=== PATIENT | male | born 1955 | race African-American/Black ===

== ENCOUNTER 2024-05-04 18:29 | Emergency (ER) | payer MEDICARE, OTHER ==
[~2024-05-04] VITALS: Ht 188 cm; Wt 72.7 kg
[2024-05-04 19:02] VITALS: TEMP 98.2
[2024-05-04] MEDS: HydrOXYzine HCL 25 MG TABLET PO ONE (19:40)
[2024-05-04] MEDS: PERMETHRIN 5% 60 GM CREAM TP ONE (19:44)
[2024-05-04 19:49] LABS: BASOPHILS % (AUTO) 0.6 % (0.0-2.0); EOSINOPHILS % (AUTO) 9.6 % (1.0-6.0); HEMATOCRIT 29.1 % (41-53); HEMOGLOBIN 9.9 g/dL (13.5-17.5); LYMPHOCYTES # (AUTO) 0.7 K/uL (1.0-4.8); LYMPHOCYTES % (AUTO) 21.6 % (22.0-44.0); MEAN CORPUSCULAR HEMOGLOBIN 36.1 pg (26.0-34.0); MEAN CORPUSCULAR HGB CONC 34.2 G/dL (31.0-37.0); MEAN CORPUSCULAR VOLUME 106 fL (80-100); MONOCYTES # (AUTO) 0.7 K/uL (0.1-1.0); MONOCYTES % (AUTO) 19.7 % (2.0-9.0); NEUTROPHILS # (AUTO) 1.6 K/uL (1.8-7.7); NEUTROPHILS % (AUTO) 48.5 % (40.0-70.0); PLATELET COUNT (AUTO) 208 K/uL (150-450); RED BLOOD CELL COUNT(AUTO) 2.75 MIL/uL (4.50-5.90); RED CELL DISTRIBUTION WIDTH 15.3 % (11.5-14.5); WHITE BLOOD COUNT (AUTO) 3.4 K/uL (4.5-11.0)
[2024-05-04 19:56] LABS: ANION GAP 4 mmol/L (8-16); CALCIUM, TOTAL 8.9 mg/dL (8.8-10.5); CARBON DIOXIDE 33 mmol/L (22-29); CHLORIDE 102 mmol/L (98-107); CREATININE 0.94 mg/dL (0.60-1.30); GLOMERULAR FILTR. RATE CALC > 60 mL/min (>60); GLUCOSE,RANDOM 97 mg/dL (70-110); POTASSIUM 3.1 mmol/L (3.5-5.1); SODIUM SERUM 139 mmol/L (136-145); UREA NITROGEN, BLOOD 12 mg/dL (7-18)
[2024-05-04 20:00] LABS: ALBUMIN 3.1 g/dL (3.4-5.0); BILIRUBIN,DIRECT 0.2 mg/dL (0.00-0.20); BILIRUBIN,TOTAL 0.4 mg/dL (0.1-1.0); TOTAL PROTEIN, SERUM 7.2 g/dL (6.4-8.2)
[2024-05-04 20:02] LABS: RBC MORPHOLOGY COMMENT ABNORMAL RBC MORPH
[2024-05-04 20:07] LABS: TROPONIN I-HIGH SENSITIVITY 17 ng/L (<76)
[2024-05-04] MEDS ORDERED: HYDR30CR3 TP (20:55)
[2024-05-04 21:04] VITALS: BP 131/69; PULSE 76; RESP 18; O2SAT 99
== END 2024-05-04 21:37 | disposition home or self-care (01) ==
LOC: EMS 18:33
DX: B86 Scabies (principal); R60.0 Localized edema
CPT/HCPCS: 71045; 80048; 80076; 84484; 85025; 93005; 99285; 36415-L1; 36415-TC

== ENCOUNTER 2024-05-20 19:22 | Inpatient (IN) | payer MEDICARE, OTHER ==
[~2024-05-20] VITALS: Ht 188 cm; Wt 81.0 kg
[~2024-05-20 19:22] MED LIST: HYDR30CR3 TP
[2024-05-20 21:38] LABS: BASOPHILS % (AUTO) 0.4 % (0.0-2.0); EOSINOPHILS % (AUTO) 0.2 % (1.0-6.0); HEMATOCRIT 32.6 % (41-53); HEMOGLOBIN 10.8 g/dL (13.5-17.5); LYMPHOCYTES # (AUTO) 0.5 K/uL (1.0-4.8); LYMPHOCYTES % (AUTO) 4.2 % (22.0-44.0); MEAN CORPUSCULAR HEMOGLOBIN 35.3 pg (26.0-34.0); MEAN CORPUSCULAR HGB CONC 33.2 G/dL (31.0-37.0); MEAN CORPUSCULAR VOLUME 106 fL (80-100); MONOCYTES # (AUTO) 0.9 K/uL (0.1-1.0); NEUTROPHILS # (AUTO) 10.3 K/uL (1.8-7.7); PLATELET COUNT (AUTO) 371 K/uL (150-450); RED BLOOD CELL COUNT(AUTO) 3.06 MIL/uL (4.50-5.90); RED CELL DISTRIBUTION WIDTH 15.1 % (11.5-14.5); WHITE BLOOD COUNT (AUTO) 11.8 K/uL (4.5-11.0)
[2024-05-20 21:40] LABS: COVID AG,FIA SOURCE NASAL SWAB
[2024-05-20 21:41] LABS: APPEARANCE,URINE CLEAR (CLEAR); BILIRUBIN,URINE NEGATIVE (NEGATIVE); COLOR,URINE LIGHT YELLOW (YELLOW); GLUCOSE, URINE (UA) NEGATIVE (NEGATIVE); KETONES,URINE NEGATIVE (NEGATIVE); LEUKOCYTE ESTERASE ,URINE NEGATIVE (NEGATIVE); NITRATE,URINE NEGATIVE (NEGATIVE); OCCULT BLOOD,URINE NEGATIVE (NEGATIVE); PROTEIN,URINE NEGATIVE (NEGATIVE); SPECIFIC GRAVITIY, URINE 1.009 (1.003-1.030); UROBILINOGEN,URINE <=1.0 mg/dL (<=1.0)
[2024-05-20 21:43] LABS: ANION GAP 10 mmol/L (8-16); CALCIUM, TOTAL 8.7 mg/dL (8.8-10.5); CARBON DIOXIDE 27 mmol/L (22-29); CHLORIDE 100 mmol/L (98-107); CREATININE 1.06 mg/dL (0.60-1.30); GLOMERULAR FILTR. RATE CALC > 60 mL/min (>60); GLUCOSE,RANDOM 117 mg/dL (70-110); POTASSIUM 3.4 mmol/L (3.5-5.1); SODIUM SERUM 137 mmol/L (136-145); UREA NITROGEN, BLOOD 10 mg/dL (7-18)
[2024-05-20 21:45] LABS: NEUTROPHILS % (AUTO) 87.2 % (40.0-70.0)
[2024-05-20 21:49] LABS: ALCOHOL, URINE DRUG SCREEN NEGATIVE (NEGATIVE); AMPHET/METH SCREEN,URINE NEGATIVE (NEGATIVE); BARBITURATE SCREEN, URINE NEGATIVE (NEGATIVE); BENZODIAZEPINES SCREEN,URINE NEGATIVE (NEGATIVE); CANNABINOID SCREEN,URINE NEGATIVE (NEGATIVE); COCAINE SCREEN,URINE POSITIVE (NEGATIVE); METHADONE SCREEN, URINE NEGATIVE (NEGATIVE); OPIATE SCREEN,URINE NEGATIVE (NEGATIVE); PHENCYCLIDINE SCREEN,URINE NEGATIVE (NEGATIVE)
[2024-05-20 21:49] LABS: BILIRUBIN,DIRECT 0.2 mg/dL (0.00-0.20); BILIRUBIN,TOTAL 0.6 mg/dL (0.1-1.0); TOTAL PROTEIN, SERUM 7.1 g/dL (6.4-8.2)
[2024-05-20 21:50] LABS: LACTIC ACID 1.3 mmol/L (0.4-2.0)
[2024-05-20 21:51] LABS: TROPONIN I-HIGH SENSITIVITY 32 ng/L (<76)
[2024-05-20] MEDS ORDERED: ONDANSETRON HCL 4 MG/2 ML VIAL IVP PRN (22:00)
[2024-05-20] MEDS ORDERED: ALBUTEROL SULFATE 2.5 MG/0.5 ML NEB SOLUTION NEB PRN (22:00)
[2024-05-20] MEDS ORDERED: IPRATROPIUM BROMIDE 0.5 MG/2.5 ML NEB SOLUTION NEB PRN (22:00)
[2024-05-20 22:01] LABS: INFLUENZA TYPE A NEGATIVE FOR TYPE A (NEGATIVE); INFLUENZA TYPE B NEGATIVE FOR TYPE B (NEGATIVE); SARS-COV2 (COVID) ANTIGEN,FIA Negative (Negative)
[2024-05-20] MEDS: CefTRIAXone 1 GM/DEXTROSE 50 ML IV ONE (22:26)
[2024-05-20] MEDS: SODIUM CHLORIDE 0.9% 1,000 ML IV ONE (22:27)
[2024-05-20] MEDS: AZITHROMYCIN 500 MG/NS 250 ML IV ONE (22:31)
[2024-05-20] MEDS: HEPARIN SODIUM,PORCINE 5,000 UNITS/ML VIAL SQ SCH (23:29)
[2024-05-21] VITALS (7 sets, daily range): BP systolic 130–165; BP diastolic 63–86; PULSE 62–89; RESP 16–19; TEMP 97.3–99.9; O2SAT 98–100
[2024-05-21] MEDS: HydrALAZINE HCL 20 MG/ML VIAL IVP ONE (01:58)
[2024-05-21] MEDS: POTASSIUM CHLORIDE 20 MEQ ER TABLET PO ONE (05:27)
[2024-05-21] MEDS: ACETAMINOPHEN 325 MG TABLET PO PRN (05:27)
[2024-05-21 06:47] LABS: BASOPHILS % (AUTO) 0.6 % (0.0-2.0); EOSINOPHILS % (AUTO) 1.2 % (1.0-6.0); HEMATOCRIT 31.9 % (41-53); HEMOGLOBIN 10.9 g/dL (13.5-17.5); LYMPHOCYTES # (AUTO) 0.7 K/uL (1.0-4.8); LYMPHOCYTES % (AUTO) 6.5 % (22.0-44.0); MEAN CORPUSCULAR HEMOGLOBIN 36.9 pg (26.0-34.0); MEAN CORPUSCULAR HGB CONC 34.3 G/dL (31.0-37.0); MEAN CORPUSCULAR VOLUME 108 fL (80-100); MONOCYTES # (AUTO) 1.1 K/uL (0.1-1.0); MONOCYTES % (AUTO) 10.4 % (2.0-9.0); NEUTROPHILS # (AUTO) 8.5 K/uL (1.8-7.7); NEUTROPHILS % (AUTO) 81.3 % (40.0-70.0); PLATELET COUNT (AUTO) 361 K/uL (150-450); RED BLOOD CELL COUNT(AUTO) 2.96 MIL/uL (4.50-5.90); RED CELL DISTRIBUTION WIDTH 15.5 % (11.5-14.5); WHITE BLOOD COUNT (AUTO) 10.4 K/uL (4.5-11.0)
[2024-05-21 06:55] LABS: ANION GAP 6 mmol/L (8-16); CALCIUM, TOTAL 8.6 mg/dL (8.8-10.5); CARBON DIOXIDE 29 mmol/L (22-29); CHLORIDE 106 mmol/L (98-107); CREATININE 1.06 mg/dL (0.60-1.30); GLOMERULAR FILTR. RATE CALC > 60 mL/min (>60); GLUCOSE,RANDOM 129 mg/dL (70-110); POTASSIUM 3.2 mmol/L (3.5-5.1); SODIUM SERUM 141 mmol/L (136-145); UREA NITROGEN, BLOOD 10 mg/dL (7-18)
[2024-05-21 07:24] LABS: RBC MORPHOLOGY COMMENT ABNORMAL RBC MORPH
[2024-05-21 12:43] LABS: POTASSIUM 3.9 mmol/L (3.5-5.1)
[2024-05-21 13:54] LABS: ANION GAP 7 mmol/L (8-16); CALCIUM, TOTAL 8.7 mg/dL (8.8-10.5); CARBON DIOXIDE 28 mmol/L (22-29); CHLORIDE 105 mmol/L (98-107); CREATININE 0.84 mg/dL (0.60-1.30); GLOMERULAR FILTR. RATE CALC > 60 mL/min (>60); GLUCOSE,RANDOM 99 mg/dL (70-110); PHOSPHORUS 3.1 mg/dL (2.5-4.9); SODIUM SERUM 140 mmol/L (136-145); UREA NITROGEN, BLOOD 12 mg/dL (7-18)
[2024-05-21] MEDS: PERMETHRIN 5% 60 GM CREAM TP ONE (21:21)
[2024-05-21] MEDS: CefTRIAXone 1 GM/DEXTROSE 50 ML IV SCH (21:21)
[2024-05-21] MEDS: AZITHROMYCIN 500 MG/NS 250 ML IV SCH (22:41)
[2024-05-22 00:14] VITALS: BP 155/80; PULSE 78; RESP 16; TEMP 98; O2SAT 100
[2024-05-22 03:50] VITALS: BP 145/72; PULSE 69; RESP 17; TEMP 98.2; O2SAT 100
[2024-05-22 06:57] LABS: ANION GAP 5 mmol/L (8-16); CALCIUM, TOTAL 8.4 mg/dL (8.8-10.5); CARBON DIOXIDE 30 mmol/L (22-29); CHLORIDE 105 mmol/L (98-107); CREATININE 0.78 mg/dL (0.60-1.30); GLOMERULAR FILTR. RATE CALC > 60 mL/min (>60); GLUCOSE,RANDOM 91 mg/dL (70-110); POTASSIUM 3.7 mmol/L (3.5-5.1); SODIUM SERUM 140 mmol/L (136-145); UREA NITROGEN, BLOOD 11 mg/dL (7-18)
[2024-05-22 07:09] LABS: BASOPHILS % (AUTO) 3.2 % (0.0-2.0); HEMATOCRIT 30.3 % (41-53); HEMOGLOBIN 10.2 g/dL (13.5-17.5); LYMPHOCYTES % (AUTO) 18.4 % (22.0-44.0); MEAN CORPUSCULAR HGB CONC 33.8 G/dL (31.0-37.0); MEAN CORPUSCULAR VOLUME 107 fL (80-100); MONOCYTES % (AUTO) 17.3 % (2.0-9.0); NEUTROPHILS # (AUTO) 3.1 K/uL (1.8-7.7); NEUTROPHILS % (AUTO) 54.1 % (40.0-70.0); PLATELET COUNT (AUTO) 334 K/uL (150-450); RED BLOOD CELL COUNT(AUTO) 2.84 MIL/uL (4.50-5.90); RED CELL DISTRIBUTION WIDTH 14.9 % (11.5-14.5); WHITE BLOOD COUNT (AUTO) 5.6 K/uL (4.5-11.0)
[2024-05-22 08:00] VITALS: BP 145/85; PULSE 76; RESP 18; TEMP 98.4; O2SAT 100
[2024-05-22 12:00] VITALS: BP 143/69; PULSE 72; RESP 18; TEMP 98.3; O2SAT 100
[2024-05-22 16:00] VITALS: BP 140/71; PULSE 75; RESP 18; TEMP 98.1; O2SAT 100
[2024-05-22] MEDS ORDERED: AMOX-457 PO (16:00)
[2024-05-22 20:28] VITALS: BP 134/87; PULSE 89; RESP 18; TEMP 98.5; O2SAT 100
[2024-05-22] MEDS ORDERED: SODIUM CHLORIDE 0.9% 250 ML IV ONE (21:07)
[2024-05-23 06:33] VITALS: BP 165/85; PULSE 75; RESP 18; TEMP 98.4; O2SAT 99
[2024-05-23 07:55] VITALS: BP 179/104; PULSE 71; RESP 18; TEMP 97.7; O2SAT 100
[2024-05-23] MEDS: CloNIDine HCL 0.1 MG TABLET PO ONE (08:48)
[2024-05-23 12:01] LABS: GLUCOMETER DEV NAME(LOC) 6N.1B; GLUCOSE,POINT OF CARE 120 MG/DL (70-110)
[2024-05-23 12:30] VITALS: BP 148/74; PULSE 70; RESP 18; TEMP 97.6; O2SAT 100
[2024-05-23 15:49] VITALS: BP 139/68; PULSE 71; RESP 18; TEMP 98.1; O2SAT 98
[2024-05-23 16:38] LABS: TROPONIN I-HIGH SENSITIVITY 11 ng/L (<76)
== END 2024-05-23 17:10 | disposition home or self-care (01) | DRG 871 ==
LOC: EMS 19:22 → EDH 21:57 → 5N 05-21 02:27 → 4E 05-22 18:31
PROVIDERS: ADMIT Internal Medicine; ATTEND Internal Medicine
DX: A41.9 Sepsis, unspecified organism (principal); J18.9 Pneumonia, unspecified organism; Z59.00 Homelessness unspecified; Z20.822 Contact with and (suspected) exposure to COVID-19; E87.6 Hypokalemia; D64.9 Anemia, unspecified
CPT/HCPCS: 70450; 71045; 80048; 80076; 80307; 81003; 82140; 82962; 83605; 83735; 84100; 84484; 85025; 87040; 87804; 93005; 96365; 96368; 96372; 99285; G0378; J0360; J0456; J0696; J1644; J7030; J7050; 36415-L1; 36415-TC; J7613

== ENCOUNTER 2024-08-12 05:46 | Inpatient (IN) | payer MEDICARE, OTHER ==
[~2024-08-12] VITALS: Ht 188 cm; Wt 71.3 kg
[~2024-08-12 05:46] MED LIST changes: +AMOX-457 PO
[2024-08-12] MEDS: hydroCHLOROthiazide 25 MG TABLET PO ONE (07:31)
[2024-08-12] MEDS: lisinopriL 10 MG TABLET PO ONE ×2 (07:31→10:16)
[2024-08-12 07:36] LABS: BASOPHILS % (AUTO) 0.8 % (0.0-2.0); HEMATOCRIT 39.3 % (41-53); HEMOGLOBIN 13.5 g/dL (13.5-17.5); LYMPHOCYTES # (AUTO) 0.8 K/uL (1.0-4.8); LYMPHOCYTES % (AUTO) 15.7 % (22.0-44.0); MEAN CORPUSCULAR HEMOGLOBIN 33.5 pg (26.0-34.0); MEAN CORPUSCULAR HGB CONC 34.3 G/dL (31.0-37.0); MEAN CORPUSCULAR VOLUME 98 fL (80-100); MONOCYTES # (AUTO) 0.6 K/uL (0.1-1.0); MONOCYTES % (AUTO) 11.8 % (2.0-9.0); NEUTROPHILS # (AUTO) 3.2 K/uL (1.8-7.7); NEUTROPHILS % (AUTO) 65.7 % (40.0-70.0); PLATELET COUNT (AUTO) 206 K/uL (150-450); RED BLOOD CELL COUNT(AUTO) 4.01 MIL/uL (4.50-5.90); RED CELL DISTRIBUTION WIDTH 13.3 % (11.5-14.5); WHITE BLOOD COUNT (AUTO) 4.9 K/uL (4.5-11.0)
[2024-08-12 07:44] LABS: ANION GAP 5 mmol/L (8-16); CALCIUM, TOTAL 9.1 mg/dL (8.8-10.5); CARBON DIOXIDE 31 mmol/L (22-29); CHLORIDE 103 mmol/L (98-107); CREATININE 1.05 mg/dL (0.60-1.30); GLOMERULAR FILTR. RATE CALC > 60 mL/min (>60); GLUCOSE,RANDOM 95 mg/dL (70-110); POTASSIUM 3.2 mmol/L (3.5-5.1); SODIUM SERUM 139 mmol/L (136-145); UREA NITROGEN, BLOOD 14 mg/dL (7-18)
[2024-08-12] MEDS: PERMETHRIN 5% 60 GM CREAM TP ONE (08:17)
[2024-08-12 08:52] LABS: TROPONIN I-HIGH SENSITIVITY 22 ng/L (<76)
[2024-08-12 08:58] LABS: APPEARANCE,URINE CLEAR (CLEAR); BILIRUBIN,URINE NEGATIVE (NEGATIVE); COLOR,URINE LIGHT YELLOW (YELLOW); GLUCOSE, URINE (UA) NEGATIVE (NEGATIVE); KETONES,URINE TRACE mg/dL (NEGATIVE); LEUKOCYTE ESTERASE ,URINE NEGATIVE (NEGATIVE); NITRATE,URINE NEGATIVE (NEGATIVE); OCCULT BLOOD,URINE NEGATIVE (NEGATIVE); PROTEIN,URINE TRACE mg/dL (NEGATIVE); SPECIFIC GRAVITIY, URINE 1.014 (1.003-1.030); UROBILINOGEN,URINE <=1.0 mg/dL (<=1.0)
[2024-08-12 09:05] LABS: ALCOHOL, URINE DRUG SCREEN NEGATIVE (NEGATIVE); AMPHET/METH SCREEN,URINE NEGATIVE (NEGATIVE); BARBITURATE SCREEN, URINE NEGATIVE (NEGATIVE); BENZODIAZEPINES SCREEN,URINE NEGATIVE (NEGATIVE); CANNABINOID SCREEN,URINE NEGATIVE (NEGATIVE); COCAINE SCREEN,URINE POSITIVE (NEGATIVE); METHADONE SCREEN, URINE NEGATIVE (NEGATIVE); OPIATE SCREEN,URINE NEGATIVE (NEGATIVE); PHENCYCLIDINE SCREEN,URINE POSITIVE (NEGATIVE)
[2024-08-12] MEDS: POTASSIUM CHLORIDE 20 MEQ ER TABLET PO ONE (12:35)
[2024-08-12] MEDS ORDERED: EZET10TA57 PO (13:21)
[2024-08-12] MEDS ORDERED: LISI-658 PO (13:21)
[2024-08-12 14:28] VITALS: BP 158/78; PULSE 82; RESP 18; TEMP 98; O2SAT 98
[2024-08-12] MEDS ORDERED: BISACODYL 10 MG RECTAL RECTAL SUPPOSITORY PR PRN (15:30)
[2024-08-12] MEDS ORDERED: MAGNESIUM HYDROXIDE SUSPENSION 30 ML UDCUP PO PRN (15:30)
[2024-08-12] MEDS ORDERED: ACETAMINOPHEN 325 MG TABLET PO PRN (15:30)
[2024-08-12] MEDS ORDERED: ZOLPIDEM TARTRATE 5 MG TABLET PO PRN (15:30)
[2024-08-12] MEDS ORDERED: HYDROCODONE/ACETAMINOPHEN 5-325 MG TABLET PO PRN (15:30)
[2024-08-12] MEDS ORDERED: MORPHINE SULFATE 2 MG/ML SYRINGE IVP PRN (15:30)
[2024-08-12] MEDS ORDERED: ONDANSETRON HCL 4 MG/2 ML VIAL IVP PRN (15:30)
[2024-08-12 15:34] VITALS: BP 142/70; PULSE 80; RESP 18; TEMP 98; O2SAT 97
[2024-08-12] MEDS: HEPARIN SODIUM,PORCINE 5,000 UNITS/ML VIAL SQ SCH (16:45)
[2024-08-12 19:20] VITALS: BP 153/83; PULSE 75; RESP 18; TEMP 97.9; O2SAT 97
[2024-08-12] MEDS ORDERED: POTASSIUM CHL 10 MEQ/WATER 50 ML IV PRN (21:00)
[2024-08-12] MEDS: DOCUSATE SODIUM 100 MG CAPSULE PO SCH (21:00)
[2024-08-12] MEDS: AmLODIPine BESYLATE 10 MG TABLET PO ONE (21:40)
[2024-08-12] MEDS: POTASSIUM CHLORIDE 20 MEQ ER TABLET PO PRN (21:54)
[2024-08-12 23:11] VITALS: BP 157/84; PULSE 72; RESP 18; TEMP 98.1; O2SAT 100
[2024-08-13 04:16] VITALS: BP 148/73; PULSE 76; RESP 19; TEMP 98.2; O2SAT 100
[2024-08-13 07:08] LABS: BASOPHILS % (AUTO) 0.9 % (0.0-2.0); EOSINOPHILS % (AUTO) 13.7 % (1.0-6.0); HEMATOCRIT 37.9 % (41-53); LYMPHOCYTES % (AUTO) 30.1 % (22.0-44.0); MEAN CORPUSCULAR HEMOGLOBIN 33.9 pg (26.0-34.0); MEAN CORPUSCULAR HGB CONC 34.4 G/dL (31.0-37.0); MEAN CORPUSCULAR VOLUME 98 fL (80-100); MONOCYTES # (AUTO) 0.3 K/uL (0.1-1.0); MONOCYTES % (AUTO) 9.3 % (2.0-9.0); NEUTROPHILS # (AUTO) 1.5 K/uL (1.8-7.7); PLATELET COUNT (AUTO) 229 K/uL (150-450); RED BLOOD CELL COUNT(AUTO) 3.85 MIL/uL (4.50-5.90); RED CELL DISTRIBUTION WIDTH 12.7 % (11.5-14.5); WHITE BLOOD COUNT (AUTO) 3.3 K/uL (4.5-11.0)
[2024-08-13 07:17] LABS: ANION GAP 3 mmol/L (8-16); CALCIUM, TOTAL 8.7 mg/dL (8.8-10.5); CARBON DIOXIDE 31 mmol/L (22-29); CHLORIDE 108 mmol/L (98-107); CREATININE 1.12 mg/dL (0.60-1.30); GLOMERULAR FILTR. RATE CALC > 60 mL/min (>60); GLUCOSE,RANDOM 129 mg/dL (70-110); SODIUM SERUM 142 mmol/L (136-145); UREA NITROGEN, BLOOD 17 mg/dL (7-18)
[2024-08-13 08:25] VITALS: BP 143/84; PULSE 64; RESP 18; TEMP 97.6; O2SAT 97
[2024-08-13] MEDS: PANTOPRAZOLE SODIUM 40 MG DR TABLET PO SCH (08:55)
[2024-08-13] MEDS: hydroCHLOROthiazide 25 MG TABLET PO SCH (08:56)
[2024-08-13] MEDS: EZETIMIBE 10 MG TABLET PO SCH (08:56)
[2024-08-13] MEDS: lisinopriL 20 MG TABLET PO SCH (08:56)
[2024-08-13 12:08] VITALS: BP 143/80; PULSE 66; RESP 18; TEMP 98.4; O2SAT 97
[2024-08-13] MEDS: AmLODIPine BESYLATE 5 MG TABLET PO SCH (12:38)
[2024-08-13 16:00] VITALS: BP 147/79; PULSE 71; RESP 18; TEMP 98.1; O2SAT 96
[2024-08-13 19:49] VITALS: BP 152/82; PULSE 72; RESP 19; TEMP 98.2; O2SAT 100
[2024-08-14 03:01] VITALS: BP 142/87; PULSE 69; RESP 17; TEMP 98.3; O2SAT 97
[2024-08-14 10:11] LABS: BASOPHILS % (AUTO) 0.8 % (0.0-2.0); EOSINOPHILS % (AUTO) 12.5 % (1.0-6.0); HEMATOCRIT 40.4 % (41-53); HEMOGLOBIN 13.6 g/dL (13.5-17.5); LYMPHOCYTES # (AUTO) 0.9 K/uL (1.0-4.8); LYMPHOCYTES % (AUTO) 32.7 % (22.0-44.0); MEAN CORPUSCULAR HEMOGLOBIN 33.2 pg (26.0-34.0); MEAN CORPUSCULAR HGB CONC 33.7 G/dL (31.0-37.0); MEAN CORPUSCULAR VOLUME 99 fL (80-100); MONOCYTES # (AUTO) 0.4 K/uL (0.1-1.0); MONOCYTES % (AUTO) 13.1 % (2.0-9.0); NEUTROPHILS # (AUTO) 1.2 K/uL (1.8-7.7); NEUTROPHILS % (AUTO) 40.9 % (40.0-70.0); PLATELET COUNT (AUTO) 226 K/uL (150-450); RED CELL DISTRIBUTION WIDTH 13.1 % (11.5-14.5); WHITE BLOOD COUNT (AUTO) 2.9 K/uL (4.5-11.0)
[2024-08-14 10:20] LABS: ANION GAP 2 mmol/L (8-16); CARBON DIOXIDE 35 mmol/L (22-29); CHLORIDE 102 mmol/L (98-107); CREATININE 0.97 mg/dL (0.60-1.30); GLOMERULAR FILTR. RATE CALC > 60 mL/min (>60); GLUCOSE,RANDOM 105 mg/dL (70-110); POTASSIUM 3.4 mmol/L (3.5-5.1); SODIUM SERUM 139 mmol/L (136-145); UREA NITROGEN, BLOOD 13 mg/dL (7-18)
[2024-08-14] MEDS ORDERED: AMLO-257 PO (10:56)
[2024-08-14] MEDS ORDERED: EZET10TA57 PO (10:56)
[2024-08-14] MEDS ORDERED: LISI-658 PO (10:56)
[2024-08-14 13:26] VITALS: BP 154/91; PULSE 66; RESP 18; TEMP 98.2; O2SAT 100
[2024-08-14 16:40] VITALS: BP 108/68; PULSE 76; RESP 17; TEMP 97.9; O2SAT 100
[2024-08-14 20:00] VITALS: BP 158/76; PULSE 72; RESP 16; TEMP 97.7; O2SAT 99
[2024-08-15 03:49] VITALS: BP 142/69; PULSE 74; RESP 18; TEMP 98.2; O2SAT 99
[2024-08-15 07:40] LABS: EOSINOPHILS % (AUTO) 9.3 % (1.0-6.0); HEMATOCRIT 38.7 % (41-53); HEMOGLOBIN 13.3 g/dL (13.5-17.5); LYMPHOCYTES % (AUTO) 26.8 % (22.0-44.0); MEAN CORPUSCULAR HEMOGLOBIN 33.9 pg (26.0-34.0); MEAN CORPUSCULAR HGB CONC 34.5 G/dL (31.0-37.0); MEAN CORPUSCULAR VOLUME 98 fL (80-100); MONOCYTES # (AUTO) 0.5 K/uL (0.1-1.0); MONOCYTES % (AUTO) 12.7 % (2.0-9.0); NEUTROPHILS # (AUTO) 1.8 K/uL (1.8-7.7); NEUTROPHILS % (AUTO) 50.2 % (40.0-70.0); PLATELET COUNT (AUTO) 222 K/uL (150-450); RED BLOOD CELL COUNT(AUTO) 3.93 MIL/uL (4.50-5.90); RED CELL DISTRIBUTION WIDTH 12.9 % (11.5-14.5); WHITE BLOOD COUNT (AUTO) 3.6 K/uL (4.5-11.0)
[2024-08-15 07:44] LABS: ANION GAP 2 mmol/L (8-16); CALCIUM, TOTAL 9.2 mg/dL (8.8-10.5); CARBON DIOXIDE 33 mmol/L (22-29); CHLORIDE 103 mmol/L (98-107); CREATININE 0.95 mg/dL (0.60-1.30); GLOMERULAR FILTR. RATE CALC > 60 mL/min (>60); GLUCOSE,RANDOM 99 mg/dL (70-110); POTASSIUM 3.9 mmol/L (3.5-5.1); SODIUM SERUM 138 mmol/L (136-145); UREA NITROGEN, BLOOD 19 mg/dL (7-18)
== END 2024-08-15 11:00 | disposition home or self-care (01) | DRG 305 ==
LOC: EMS 05:54 → EDH 10:42 → 5S 13:53
PROVIDERS: ADMIT Internal Medicine; ATTEND Internal Medicine
DX: I16.0 Hypertensive urgency (principal); E86.0 Dehydration; E87.6 Hypokalemia; B86 Scabies; F19.10 Other psychoactive substance abuse, uncomplicated; E78.5 Hyperlipidemia, unspecified; I10 Essential (primary) hypertension; Z91.148 Patient's other noncompliance with medication regimen for other reason; Z79.899 Other long term (current) drug therapy
CPT/HCPCS: 71045; 80048; 80307; 81003; 84132; 84484; 85025; 93005; 97162; 97530; 99285; G0378; G0480; J1644; 36415-L1; 36415-TC

== ENCOUNTER 2024-08-22 07:10 | Emergency (ER) | payer MEDICARE, OTHER ==
[~2024-08-22] VITALS: Ht 188 cm; Wt 77.3 kg
[~2024-08-22 07:10] MED LIST changes: +AMLO-257 PO; -AMOX-457 PO; +EZET10TA57 PO; -HYDR30CR3 TP; +LISI-658 PO
[2024-08-22 07:13] VITALS: TEMP 98
[2024-08-22 07:32] LABS: BASOPHILS % (AUTO) 0.4 % (0.0-2.0); EOSINOPHILS % (AUTO) 13.4 % (1.0-6.0); HEMATOCRIT 36.2 % (41-53); HEMOGLOBIN 12.4 g/dL (13.5-17.5); LYMPHOCYTES % (AUTO) 22.5 % (22.0-44.0); MEAN CORPUSCULAR HEMOGLOBIN 33.9 pg (26.0-34.0); MEAN CORPUSCULAR HGB CONC 34.4 G/dL (31.0-37.0); MEAN CORPUSCULAR VOLUME 99 fL (80-100); MONOCYTES # (AUTO) 0.5 K/uL (0.1-1.0); MONOCYTES % (AUTO) 12.2 % (2.0-9.0); NEUTROPHILS # (AUTO) 2.3 K/uL (1.8-7.7); NEUTROPHILS % (AUTO) 51.5 % (40.0-70.0); PLATELET COUNT (AUTO) 245 K/uL (150-450); RED BLOOD CELL COUNT(AUTO) 3.67 MIL/uL (4.50-5.90); WHITE BLOOD COUNT (AUTO) 4.4 K/uL (4.5-11.0)
[2024-08-22] MEDS: CloNIDine HCL 0.1 MG TABLET PO ONE (07:38)
[2024-08-22] MEDS: AmLODIPine BESYLATE 5 MG TABLET PO ONE (07:38)
[2024-08-22 07:39] LABS: ANION GAP 6 mmol/L (8-16); CALCIUM, TOTAL 9.1 mg/dL (8.8-10.5); CARBON DIOXIDE 32 mmol/L (22-29); CHLORIDE 104 mmol/L (98-107); CREATININE 0.93 mg/dL (0.60-1.30); GLOMERULAR FILTR. RATE CALC > 60 mL/min (>60); GLUCOSE,RANDOM 75 mg/dL (70-110); POTASSIUM 4.1 mmol/L (3.5-5.1); SODIUM SERUM 142 mmol/L (136-145); UREA NITROGEN, BLOOD 12 mg/dL (7-18)
[2024-08-22 07:48] LABS: TROPONIN I-HIGH SENSITIVITY 12 ng/L (<76)
[2024-08-22] MEDS ORDERED: AMLO-257 PO (07:59)
[2024-08-22] MEDS ORDERED: CEPH-558 PO (07:59)
[2024-08-22] MEDS: PERMETHRIN 5% 60 GM CREAM TP ONE (08:33)
[2024-08-22] MEDS: CEPHALEXIN MONOHYDRATE 500 MG CAPSULE PO ONE (08:33)
[2024-08-22 09:03] VITALS: BP 179/91; PULSE 61; RESP 16; O2SAT 99
[2024-08-22] MEDS ORDERED: IBUP-1492 PO (09:58)
== END 2024-08-22 09:41 | disposition home or self-care (01) ==
LOC: EMS 07:10
DX: B86 Scabies (principal); I10 Essential (primary) hypertension; E78.00 Pure hypercholesterolemia, unspecified; Z98.890 Other specified postprocedural states; Z79.899 Other long term (current) drug therapy
CPT/HCPCS: 80048; 84484; 85025; 93005; 99284

== ENCOUNTER 2024-10-20 09:17 | Inpatient (IN) | payer MEDICARE, OTHER ==
[~2024-10-20] VITALS: Ht 188 cm; Wt 79.0 kg
[~2024-10-20 09:17] MED LIST changes: +CEPH-558 PO; +IBUP-1492 PO
[2024-10-20 10:35] LABS: PLATELET COUNT (AUTO) 283 K/uL (150-450); RED BLOOD CELL COUNT(AUTO) 3.54 MIL/uL (4.50-5.90); RED CELL DISTRIBUTION WIDTH 14.2 % (11.5-14.5); WHITE BLOOD COUNT (AUTO) 4.8 K/uL (4.5-11.0)
[2024-10-20 10:40] LABS: CALCIUM, TOTAL 8.3 mg/dL (8.8-10.5); CREATININE 1.24 mg/dL (0.60-1.30); GLOMERULAR FILTR. RATE CALC > 60 mL/min (>60); GLUCOSE,RANDOM 69 mg/dL (70-110); SODIUM SERUM 138 mmol/L (136-145); UREA NITROGEN, BLOOD 15 mg/dL (7-18)
[2024-10-20] MEDS: VANCOMYCIN 1.25 GM/WATER(PEG) 250 ML IV ONE (11:09)
[2024-10-20] MEDS ORDERED: ACETAMINOPHEN 325 MG TABLET PO PRN (11:30)
[2024-10-20] MEDS ORDERED: ONDANSETRON HCL 4 MG/2 ML VIAL IVP PRN (11:30)
[2024-10-20] MEDS ORDERED: MAGNESIUM HYDROXIDE SUSPENSION 30 ML UDCUP PO PRN (11:30)
[2024-10-20 11:31] LABS: LACTIC ACID 1.9 mmol/L (0.4-2.0)
[2024-10-20] MEDS: PERMETHRIN 5% 60 GM CREAM TP ONE (12:15)
[2024-10-20 12:40] LABS: APPEARANCE,URINE CLEAR (CLEAR); GLUCOSE, URINE (UA) NEGATIVE (NEGATIVE); LEUKOCYTE ESTERASE ,URINE NEGATIVE (NEGATIVE); NITRATE,URINE NEGATIVE (NEGATIVE); OCCULT BLOOD,URINE NEGATIVE (NEGATIVE); SPECIFIC GRAVITIY, URINE 1.022 (1.003-1.030)
[2024-10-20 12:47] LABS: ALCOHOL, URINE DRUG SCREEN NEGATIVE (NEGATIVE); AMPHET/METH SCREEN,URINE NEGATIVE (NEGATIVE); BARBITURATE SCREEN, URINE NEGATIVE (NEGATIVE); CANNABINOID SCREEN,URINE NEGATIVE (NEGATIVE); COCAINE SCREEN,URINE POSITIVE (NEGATIVE); METHADONE SCREEN, URINE NEGATIVE (NEGATIVE)
[2024-10-20 13:00] LABS: PH,URINE DRUG SCREEN 6.0 (5.0-8.0)
[2024-10-20] MEDS: MULTIVITAMINS WITH MINERALS, THERAPEUTIC TABLET PO SCH (13:13)
[2024-10-20] MEDS: CefTRIAXone 1 GM/DEXTROSE 50 ML IV SCH (14:20)
[2024-10-20] MEDS ORDERED: SODIUM CHLORIDE 0.9% 500 ML IV ONE (14:25)
[2024-10-20] MEDS: HEPARIN SODIUM,PORCINE 5,000 UNITS/ML VIAL SQ SCH (15:51)
[2024-10-20 18:17] VITALS: BP 177/84; PULSE 74; RESP 18; TEMP 98.2; O2SAT 99
[2024-10-20 18:18] VITALS: BP 175/83
[2024-10-20] MEDS: NITROGLYCERIN 2% (1 GM=INCH) OINTMENT PACKET TP SCH (18:24)
[2024-10-20 19:50] VITALS: BP 151/78; PULSE 82; RESP 18; TEMP 98.1; O2SAT 100
[2024-10-20] MEDS: OxyCODONE HCL/ACETAMINOPHEN 5-325 MG TABLET PO PRN (20:15)
[2024-10-20] MEDS: VANCOMYCIN 750 MG/WATER(PEG) 150 ML IV SCH (20:15)
[2024-10-21 04:51] VITALS: BP 150/80; PULSE 96; RESP 18; TEMP 97.8; O2SAT 98
[2024-10-21 08:49] LABS: CALCIUM, TOTAL 8.4 mg/dL (8.8-10.5); CREATININE 0.98 mg/dL (0.60-1.30); GLOMERULAR FILTR. RATE CALC > 60 mL/min (>60); GLUCOSE,RANDOM 96 mg/dL (70-110); SODIUM SERUM 137 mmol/L (136-145); UREA NITROGEN, BLOOD 12 mg/dL (7-18)
[2024-10-21] MEDS: FAMOTIDINE 20 MG TABLET PO SCH (08:51)
[2024-10-21 10:00] VITALS: BP 164/85; PULSE 74; RESP 18; TEMP 98.2; O2SAT 98
[2024-10-21 16:00] VITALS: BP 146/81; PULSE 78; RESP 18; TEMP 98.6; O2SAT 100
[2024-10-21] MEDS: VANCOMYCIN 1.25 GM/WATER(PEG) 250 ML IV ONE (17:43)
[2024-10-21 19:59] VITALS: BP 154/76; PULSE 84; RESP 19; TEMP 98.2; O2SAT 100
[2024-10-22 06:04] VITALS: BP 166/87; PULSE 78; RESP 19; TEMP 98.4; O2SAT 100
[2024-10-22] MEDS: VANCOMYCIN 1GM/WATER(PEG/NADA) 200 ML IV SCH (08:00)
[2024-10-22 08:24] VITALS: BP 150/69; PULSE 77; RESP 18; TEMP 98.4; O2SAT 98
[2024-10-22 08:25] VITALS: BP 150/69; PULSE 77; RESP 18; TEMP 98.4; O2SAT 98
[2024-10-22 15:19] VITALS: BP 152/78; PULSE 71; RESP 18; TEMP 98.2; O2SAT 100
[2024-10-22 21:30] VITALS: BP 158/80; PULSE 72; RESP 18; TEMP 98.2; O2SAT 100
[2024-10-23 06:21] LABS: CALCIUM, TOTAL 8.4 mg/dL (8.8-10.5); CREATININE 0.95 mg/dL (0.60-1.30); GLOMERULAR FILTR. RATE CALC > 60 mL/min (>60); GLUCOSE,RANDOM 100 mg/dL (70-110); SODIUM SERUM 138 mmol/L (136-145); UREA NITROGEN, BLOOD 18 mg/dL (7-18)
[2024-10-23 08:50] VITALS: BP 130/68; PULSE 71; RESP 18; TEMP 98.1; O2SAT 100
== END 2024-10-23 20:18 | DRG 603 ==
LOC: EMS 09:37 → EDH 11:28 → 6S 13:05
PROVIDERS: ADMIT Internal Medicine; ATTEND Internal Medicine
DX: L03.115 Cellulitis of right lower limb (principal); L03.116 Cellulitis of left lower limb; F10.90 Alcohol use, unspecified, uncomplicated; Y90.9 Presence of alcohol in blood, level not specified; B86 Scabies; I10 Essential (primary) hypertension; E78.00 Pure hypercholesterolemia, unspecified; Z79.899 Other long term (current) drug therapy
CPT/HCPCS: 80048; 80307; 81003; 83605; 85025; 87040; 96365; 96366; 97110; 97162; 99285; G0480; J0696; J1644; J7040; 36415-L1; 36415-TC

== ENCOUNTER 2025-01-02 07:26 | Inpatient (IN) | payer MEDICARE, OTHER ==
[~2025-01-02] VITALS: Ht 188 cm; Wt 81.8 kg
[~2025-01-02 07:26] MED LIST changes: -CEPH-558 PO; -IBUP-1492 PO
[2025-01-02 08:42] LABS: PLATELET COUNT (AUTO) 225 K/uL (150-450); RED BLOOD CELL COUNT(AUTO) 3.30 MIL/uL (4.50-5.90); RED CELL DISTRIBUTION WIDTH 14.1 % (11.5-14.5); WHITE BLOOD COUNT (AUTO) 3.8 K/uL (4.5-11.0)
[2025-01-02 08:52] LABS: CALCIUM, TOTAL 8.3 mg/dL (8.8-10.5); CREATININE 0.77 mg/dL (0.60-1.30); GLOMERULAR FILTR. RATE CALC > 60 mL/min (>60); GLUCOSE,RANDOM 80 mg/dL (70-110); SODIUM SERUM 135 mmol/L (136-145); UREA NITROGEN, BLOOD 8 mg/dL (7-18)
[2025-01-02 09:02] LABS: TROPONIN I-HIGH SENSITIVITY 8 ng/L (<76)
[2025-01-02 09:59] LABS: APPEARANCE,URINE CLEAR (CLEAR); GLUCOSE, URINE (UA) NEGATIVE (NEGATIVE); LEUKOCYTE ESTERASE ,URINE NEGATIVE (NEGATIVE); NITRATE,URINE NEGATIVE (NEGATIVE); OCCULT BLOOD,URINE NEGATIVE (NEGATIVE); SPECIFIC GRAVITIY, URINE 1.006 (1.003-1.030)
[2025-01-02 12:58] VITALS: BP 174/79; PULSE 82; RESP 20; TEMP 98.2; O2SAT 99
[2025-01-02 16:07] VITALS: BP 181/87; PULSE 87; RESP 20; TEMP 98.4; O2SAT 100
[2025-01-02 20:00] VITALS: BP 171/82; PULSE 89; RESP 20; TEMP 98.2; O2SAT 99
[2025-01-02] MEDS: ACETAMINOPHEN 325 MG TABLET PO PRN (21:28)
[2025-01-03] MEDS ORDERED: IPRATROPIUM BROMIDE 0.5 MG/2.5 ML NEB SOLUTION NEB PRN
[2025-01-03] MEDS ORDERED: ONDANSETRON HCL 4 MG/2 ML VIAL IVP PRN
[2025-01-03] MEDS ORDERED: ACETAMINOPHEN 325 MG TABLET PO PRN
[2025-01-03] MEDS ORDERED: MORPHINE SULFATE 4 MG/ML SYRINGE IVP PRN
[2025-01-03] MEDS ORDERED: HYDROCODONE/ACETAMINOPHEN 5-325 MG TABLET PO PRN
[2025-01-03] MEDS: HEPARIN SODIUM,PORCINE 5,000 UNITS/ML VIAL SQ SCH
[2025-01-03] MEDS ORDERED: ZOLPIDEM TARTRATE 5 MG TABLET PO PRN
[2025-01-03] MEDS ORDERED: ALBUTEROL SULFATE 2.5 MG/0.5 ML NEB SOLUTION NEB PRN
[2025-01-03] MEDS ORDERED: LABETALOL HCL 5 MG/ML 20 ML VIAL IVP PRN
[2025-01-03] MEDS ORDERED: BISACODYL 10 MG RECTAL RECTAL SUPPOSITORY PR PRN
[2025-01-03 06:30] VITALS: BP 141/73; PULSE 74; RESP 16; TEMP 98.2; O2SAT 100
[2025-01-03 07:40] VITALS: BP 131/89; PULSE 77; RESP 18; TEMP 98.6; O2SAT 97
[2025-01-03] MEDS: PANTOPRAZOLE SODIUM 40 MG DR TABLET PO SCH (09:00)
[2025-01-03] MEDS: EZETIMIBE 10 MG TABLET PO SCH (09:03)
[2025-01-03 12:04] VITALS: BP 153/77; PULSE 74; RESP 16; TEMP 98.6; O2SAT 100
[2025-01-03 15:55] VITALS: BP 158/85; PULSE 73; RESP 18; TEMP 98.1; O2SAT 100
[2025-01-03 19:58] VITALS: BP 151/80; PULSE 78; RESP 18; TEMP 98.1; O2SAT 100
[2025-01-04 05:30] VITALS: BP 150/80; PULSE 70; RESP 18; TEMP 98.1; O2SAT 98
[2025-01-04 08:00] VITALS: BP 114/67; PULSE 74; RESP 17; TEMP 98.1; O2SAT 100
[2025-01-04 11:08] VITALS: BP 132/73; PULSE 67
[2025-01-04 15:49] VITALS: BP 137/73; PULSE 75; RESP 17; TEMP 98.2; O2SAT 100
[2025-01-04 20:07] VITALS: BP 137/71; PULSE 71; RESP 19; TEMP 98.4; O2SAT 100
[2025-01-05 05:00] VITALS: BP 132/73; PULSE 67; RESP 18; TEMP 98; O2SAT 100
[2025-01-05 08:19] VITALS: BP 136/71; PULSE 75; RESP 18; TEMP 98.1; O2SAT 100
[2025-01-05 15:50] VITALS: BP 130/69; PULSE 68; RESP 18; TEMP 98; O2SAT 99
[2025-01-05] MEDS: MAGNESIUM HYDROXIDE SUSPENSION 30 ML UDCUP PO PRN (17:36)
[2025-01-05 20:00] VITALS: BP 120/66; PULSE 68; RESP 18; TEMP 98.1; O2SAT 100
[2025-01-06 08:00] VITALS: BP 135/67; PULSE 68; RESP 20; TEMP 98.2; O2SAT 100
== END 2025-01-06 16:40 | disposition home health service (06) | DRG 923 ==
LOC: EMS 07:27 → EDH 09:51 → 4E 12:15
PROVIDERS: ADMIT Hospitalist; ATTEND Hospitalist
DX: T69.022A Immersion foot, left foot, initial encounter (principal); Z59.00 Homelessness unspecified; L03.116 Cellulitis of left lower limb; D64.9 Anemia, unspecified; I10 Essential (primary) hypertension; E78.00 Pure hypercholesterolemia, unspecified; E87.6 Hypokalemia; R60.0 Localized edema; X31.XXXA Exposure to excessive natural cold, initial encounter; Z79.899 Other long term (current) drug therapy
CPT/HCPCS: 71045; 80048; 81003; 83880; 84132; 84484; 85025; 87081; 93005; 97116; 97162; 97165; 97530; 97535; 99285; G0378; J1644; 36415-L1; 36415-TC